=== PATIENT | male | born 1950 | race Caucasian/White ===

== ENCOUNTER 2017-03-07 08:17 | Emergency (ER) | payer MEDICARE, OTHER ==
[~2017-03-07] VITALS: Ht 172.7 cm; Wt 111.4 kg
[2017-03-07 08:17] VITALS: TEMP 97.7
[~2017-03-07 08:17] MED LIST: CEPHALEXIN500 M1 PO; NEXIUM 20MG20 MG PO; NORCO 325 MG-51 TAB PO; SYNTHROID0.125 MG/T PO
[2017-03-07] MEDS ORDERED: LIPITOR 40MG TA40 MG PO (08:31)
[2017-03-07] MEDS ORDERED: PROTONIX20 MG PO (08:39)
[2017-03-07 08:47] LABS: PH 5 (5-8); SQUAMOUS EPITHELIAL None Seen /hpf; URINE APPEARANCE Clear; URINE BACTERIA None Seen /hpf; URINE BILIRUBIN Negative (NEGATIVE); URINE BLOOD Negative (NEGATIVE); URINE COLOR Yellow; URINE GLUCOSE Negative (NEGATIVE); URINE KETONE Negative (NEGATIVE); URINE RBC None Seen /hpf; URINE UROBILINOGEN Negative (NEGATIVE); URINE WBC 0-2 /hpf
[2017-03-07 08:48] LABS: BASO # 0.1 (0.0-0.2); BASO % 1.1 % (0.0-2.0); EOS # 0.3 (0.0-0.7); EOS % 4.7 % (0-4.0); GRAN # 3.2 (1.4-6.5); HEMOGLOBIN 15.9 g/dl (13.5-18.0); LYMPH # 1.3 (1.2-3.4); LYMPH % 23.9 % (20.0-51.0); MEAN CELL VOLUME 93 fl (80.0-100.0); MEAN CORPUSCULAR HEMOGLOBIN 32 pg (27.0-31.0); MEAN CORPUSCULAR HGB CONC 34 g/dl (33.0-37.0); MEAN PLATELET VOLUME 8.7 fl (7.4-10.4); MONO # 0.5 (0.1-0.6); MONO % 9.9 % (1.7-9.3); PLATELET COUNT 181 K/mm3 (130-400); RED BLOOD COUNT 5.04 M/mm3 (4.20-5.60); WHITE BLOOD COUNT 5.4 K/mm3 (4.8-10.8)
[2017-03-07 09:06] LABS: ADJUSTED CALCIUM 8.9 mg/dL (8.4-10.2); ALBUMIN 4.2 gm/dL (3.5-5.0); BILIRUBIN,TOTAL 1.1 mg/dL (0.0-1.0); C-REACTIVE PROTEIN 0.6 mg/dL (0.0-0.9); CALCIUM 9.1 mg/dL (8.4-10.2); CREATININE, serum 1.03 mg/dL (0.66-1.25); POTASSIUM 3.9 mmol/L (3.4-5.0); TOTAL PROTEIN 6.8 gm/dL (6.4-8.2)
[2017-03-07] MEDS ORDERED: NORCO 325 MG-51 TAB PO (09:21)
[2017-03-07] MEDS ORDERED: ZOFRAN 4MG T4 MG/TAB PO (09:31)
[2017-03-07 10:04] VITALS: BP 174/99; PULSE 64
== END 2017-03-07 10:06 | disposition home or self-care (01) ==
LOC: COL.ER 08:17
PROVIDERS: Emergency Medicine
DX: K85.90 Acute pancreatitis without necrosis or infection, unspecified (principal); K21.9 Gastro-esophageal reflux disease without esophagitis; E03.9 Hypothyroidism, unspecified; E78.00 Pure hypercholesterolemia, unspecified; Z87.891 Personal history of nicotine dependence; Z87.442 Personal history of urinary calculi; Z85.09 Personal history of malignant neoplasm of other digestive organs
CPT/HCPCS: J1170; J1885; J2405; J7030

== ENCOUNTER 2017-03-11 09:28 | Emergency (ER) | payer MEDICARE, OTHER ==
[~2017-03-11] VITALS: Ht 172.7 cm; Wt 109.1 kg
[~2017-03-11 09:28] MED LIST changes: +LIPITOR 40MG TA40 MG PO; +PROTONIX20 MG PO; +ZOFRAN 4MG T4 MG/TAB PO
[2017-03-11 09:32] VITALS: TEMP 98.3
[2017-03-11] MEDS ORDERED: FLEXERIL 1010 MG/TAB PO (09:36)
[2017-03-11] MEDS ORDERED: ZANTAC 150MG T150 MG PO (09:38)
[2017-03-11] MEDS ORDERED: VENTOLIN0.09 MG IH (09:38)
[2017-03-11 10:22] LABS: PH 6 (5-8); SQUAMOUS EPITHELIAL None Seen /hpf; URINE APPEARANCE Clear; URINE BACTERIA None Seen /hpf; URINE BILIRUBIN Negative (NEGATIVE); URINE BLOOD Negative (NEGATIVE); URINE COLOR Straw; URINE GLUCOSE Negative (NEGATIVE); URINE KETONE Negative (NEGATIVE); URINE RBC 0-2 /hpf; URINE UROBILINOGEN Negative (NEGATIVE)
[2017-03-11 10:28] LABS: BASO # 0.1 (0.0-0.2); BASO % 1.4 % (0.0-2.0); EOS # 0.2 (0.0-0.7); EOS % 4.3 % (0-4.0); GRAN # 2.8 (1.4-6.5); GRAN % 63.7 % (42.2-75.2); HEMATOCRIT 48.5 % (42.0-52.0); HEMOGLOBIN 16.7 g/dl (13.5-18.0); LYMPH % 22.7 % (20.0-51.0); MEAN CELL VOLUME 92 fl (80.0-100.0); MEAN CORPUSCULAR HEMOGLOBIN 32 pg (27.0-31.0); MEAN CORPUSCULAR HGB CONC 34 g/dl (33.0-37.0); MEAN PLATELET VOLUME 8.6 fl (7.4-10.4); MONO # 0.3 (0.1-0.6); MONO % 7.7 % (1.7-9.3); PLATELET COUNT 180 K/mm3 (130-400); RED BLOOD COUNT 5.25 M/mm3 (4.20-5.60); REDCELL DISTRIBUTION WIDTH-CV 13.2 % (11.5-14.5); WHITE BLOOD COUNT 4.4 K/mm3 (4.8-10.8)
[2017-03-11 10:29] LABS: URINE WBC None Seen /hpf
[2017-03-11 10:50] LABS: ADJUSTED CALCIUM 8.9 mg/dL (8.4-10.2); ALBUMIN 4.7 gm/dL (3.5-5.0); BILIRUBIN,TOTAL 1.2 mg/dL (0.0-1.0); C-REACTIVE PROTEIN 0.7 mg/dL (0.0-0.9); CALCIUM 9.5 mg/dL (8.4-10.2); CREATININE, serum 1.02 mg/dL (0.66-1.25); POTASSIUM 4.2 mmol/L (3.4-5.0); TOTAL PROTEIN 7.3 gm/dL (6.4-8.2)
[2017-03-11 10:55] LABS: PROTHROMBIN TIME 10.5 SECONDS (9.7-12.8)
[2017-03-11 10:58] LABS: PARTIAL THROMBOPLASTIN TIME 34.8 SECONDS (26.0-37.0)
[2017-03-11] MEDS ORDERED: PREDNISONE20 MG PO (12:35)
[2017-03-11] MEDS ORDERED: VOLTAREN 75 DR75 MG PO (12:35)
[2017-03-11 13:10] VITALS: BP 159/89; PULSE 68
== END 2017-03-11 13:10 | disposition home or self-care (01) ==
LOC: COL.ER 09:28
PROVIDERS: Emergency Medicine
DX: S39.012A Strain of muscle, fascia and tendon of lower back, initial encounter (principal); M62.830 Muscle spasm of back; X58.XXXA Exposure to other specified factors, initial encounter
CPT/HCPCS: J1885; J2765; J2930; J3010; J7030; Q9967

== ENCOUNTER → 2017-03-15 | Outpatient (CLI) | payer MEDICARE, OTHER ==
[~2017-03-15] MED LIST changes: +FLEXERIL 1010 MG/TAB PO; +LEVBID0.375 MG; +PREDNISONE20 MG PO; +TIROSINT125 MC1 PO; +VENTOLIN0.09 MG IH; +VOLTAREN 75 DR75 MG PO; +ZANTAC 150150 MG PO; +ZANTAC 150MG T150 MG PO
== END ==
LOC: COL.PUL 02-11 11:20
DX: R05 Cough (principal); Z72.0 Tobacco use

== ENCOUNTER 2017-04-07 09:00 | Outpatient (RCR) | payer MEDICARE, OTHER ==
[~2017-04-07 09:00] MED LIST changes: -LEVBID0.375 MG; -TIROSINT125 MC1 PO; -ZANTAC 150150 MG PO
== END 2017-04-08 10:24 | disposition still patient (30) ==
LOC: MKS.ESL.PT 09:00
DX: T14.8 Other injury of unspecified body region (principal)
CPT/HCPCS: G8990-GP; G8991-GP; G8992-GP

== ENCOUNTER → 2017-04-16 | Outpatient (CLI) | payer MEDICARE, OTHER ==
[~2017-04-16] MED LIST changes: +LEVBID0.375 MG; +TIROSINT125 MC1 PO; +ZANTAC 150150 MG PO
== END ==
LOC: COL.PUL 07:42
DX: R05 Cough (principal); Z72.0 Tobacco use

== ENCOUNTER 2017-05-25 09:12 | Day surgery (SDC) | payer MEDICARE, OTHER ==
[~2017-05-25] VITALS: Ht 172.7 cm; Wt 104.4 kg
[~2017-05-25 09:12] MED LIST changes: -LEVBID0.375 MG; -TIROSINT125 MC1 PO; -ZANTAC 150150 MG PO
[2017-05-25 10:04] VITALS: BP 124/91; PULSE 74; TEMP 97.6
[2017-05-25] MEDS ORDERED: TIROSINT125 MC1 PO (10:23)
[2017-05-25] MEDS ORDERED: ZANTAC 150150 MG PO (10:26)
[2017-05-25 11:55] VITALS: BP 168/98; PULSE 64; TEMP 97.5
[2017-05-25] MEDS ORDERED: LEVBID0.375 MG (12:05)
[2017-05-25 12:10] VITALS: BP 137/90; PULSE 61
[2017-05-25 12:25] VITALS: BP 168/100; PULSE 63
[2017-05-25 12:45] VITALS: BP 150/80; PULSE 67
[2017-05-25 15:56] VITALS: BP 134/86; PULSE 59
== END 2017-05-25 13:00 | disposition home or self-care (01) ==
LOC: SDCO 09:12
DX: Z12.11 Encounter for screening for malignant neoplasm of colon (principal); K64.0 First degree hemorrhoids; K57.30 Diverticulosis of large intestine without perforation or abscess without bleeding; E03.9 Hypothyroidism, unspecified; K29.30 Chronic superficial gastritis without bleeding; K22.70 Barrett's esophagus without dysplasia; K21.0 Gastro-esophageal reflux disease with esophagitis; E78.00 Pure hypercholesterolemia, unspecified; Z85.810 Personal history of malignant neoplasm of tongue; Z92.21 Personal history of antineoplastic chemotherapy; Z92.3 Personal history of irradiation
CPT/HCPCS: OP; J2704; J7030

== ENCOUNTER → 2020-05-17 | Outpatient (CLI) | payer MEDICARE, OTHER ==
[~2020-05-17] MED LIST changes: +LEVBID0.375 MG; +TIROSINT125 MC1 PO; +ZANTAC 150150 MG PO
== END ==
LOC: COL.RAD 07:30
DX: K76.89 Other specified diseases of liver (principal)
CPT/HCPCS: Q9967

== ENCOUNTER 2021-05-04 11:09 | Emergency (ER) | payer MEDICARE, OTHER ==
[~2021-05-04] VITALS: Ht 172.7 cm; Wt 110.5 kg
[2021-05-04 11:20] VITALS: TEMP 98
[2021-05-04] MEDS ORDERED: NORCO 325 MG-51 TAB PO (13:23)
[2021-05-04] MEDS ORDERED: PREDNISONE20 MG PO (13:23)
[2021-05-04 14:08] VITALS: BP 146/76; PULSE 68
== END 2021-05-04 12:45 | disposition home or self-care (01) ==
LOC: COL.ER 11:09
DX: M48.061 Spinal stenosis, lumbar region without neurogenic claudication (principal); M25.552 Pain in left hip; Z87.891 Personal history of nicotine dependence
CPT/HCPCS: J1100; J2270; J2405

== ENCOUNTER → 2021-07-22 | Outpatient (CLI) | payer MEDICARE, OTHER | LOC: COL.RAD 07-18 10:00 | DX: Z12.2 Encounter for screening for malignant neoplasm of respiratory organs (principal); K76.0 Fatty (change of) liver, not elsewhere classified; I25.10 Atherosclerotic heart disease of native coronary artery without angina pectoris; Z87.891 Personal history of nicotine dependence ==

== ENCOUNTER → 2022-03-04 | Outpatient (CLI) | payer MEDICARE, OTHER | LOC: COL.VAS 10:08 | DX: M25.552 Pain in left hip (principal); M79.89 Other specified soft tissue disorders ==

== ENCOUNTER → 2023-02-10 | Outpatient (CLI) | payer MEDICARE, OTHER | LOC: COL.PUL 09:52 | DX: R06.02 Shortness of breath (principal) ==